=== PATIENT | female | born 1975 | race Caucasian/White ===

== ENCOUNTER → 2020-11-03 13:17 | Outpatient (BNVA) | payer OTHER, SELFPAY | PROVIDERS: PCP Internal Medicine; Referring Provider Internal Medicine; Visit Provider Student in an Organized Health Care Education/Training Program | DX: Z76.89 Persons encountering health services in other specified circumstances (principal) ==

== ENCOUNTER 2021-02-24 12:11 | Outpatient (REF) | payer OTHER, SELFPAY ==
[2021-02-24 12:54] LABS: MANUAL DIFF FLAG NO
[2021-02-24 13:04] LABS: Basophils Absolute Auto 0.1 X10*3/uL (0.0-0.2); Basophils Percent Auto 0.7 % (0-2); Eosinophils Absolute Auto 0.3 X10*3/uL (0.0-0.4); Eosinophils Percent Auto 3.1 % (0-4); Hematocrit 43.3 % (37-47); Hemoglobin 14.2 g/dl (12.0-16.0); Imm Gran Abs Auto 0.05 X10*3/uL (0.00-0.03); Imm Gran Pct Auto 0.6 % (0.0-0.4); Lymphocytes Absolute Auto 2.5 X10*3/uL (1.2-4.9); Lymphocytes Percent Auto 27.1 % (20-40); Mean Corpuscular HGB Conc 32.8 g/dl (31.0-35.0); Mean Corpuscular Hemoglobin 31.6 pg (27.0-33.0); Mean Corpuscular Volume 96.4 fL (80-98); Mean Platelet Volume 10.9 fL (9.4-12.3); Monocytes Absolute Auto 1.3 X10*3/uL (0.1-1.2); Monocytes Percent Auto 14.3 % (2-11); Neutrophils Absolute Auto 4.9 X10*3/uL (2.0-8.3); Neutrophils Percent Auto 54.2 % (45-73); Platelet Count 227 X10*3/uL (160-400); Red Blood Count 4.49 X10*6/uL (4.20-5.50); Red Cell Distribution Width 13.3 % (11.0-16.0); White Blood Count 9.1 X10*3/uL (4.8-10.8)
[2021-02-24 14:01] LABS: Glucose Urine UA NEG (NEG); Leukocyte Esterase Urine NEG (NEG); Nitrite Urine NEG (NEG); PH 5.5 (5.0-8.0); Urine Blood TRACE (NEG); Urine Ketones NEG (NEG); Urine Protein NEG (NEG-TRACE)
[2021-02-24 14:04] LABS: Appearance Urine CLEAR; Color Urine YELLOW
[2021-02-24 14:11] LABS: Erythrocyte Sedimentation Rate 6 MM/HR (0-20)
[2021-02-24 14:33] LABS: Squamous Epithelial Cell Urine 1+ /LPF; WBC Urine 0-2 /HPF (0-4)
[2021-02-24 18:27] LABS: Alanine Aminotransferase 30 U/L (0-31); Albumin Level 4.2 g/dL (3.5-5.0); Alkaline Phosphatase 60 U/L (39-117); Anion Gap 11 (12-20); Aspartate Amino Transferase 24 U/L (5-31); Bilirubin Total 0.7 mg/dL (0.0-1.0); Blood Urea Nitrogen 12 mg/dL (9-16); C Reactive Protein 0.16 mg/dL (< or = 0.50); Calcium 9.2 mg/dL (8.4-10.2); Carbon Dioxide 26 mmol/L (22-29); Chloride 105 mmol/L (96-108); Estimated Glomerular Filt Rate > 60; Glucose Random 92 mg/dL (60-115); Potassium 4.4 mmol/L (3.3-5.1); Sodium 138 mmol/L (135-145); Total Protein 7.2 g/dL (6.5-8.0)
[2021-02-25 12:11] LABS: Anti DNA DS Antibody 23 IU/mL
[2021-02-25 14:12] LABS: Complement C3 99 mg/dL (83-193)
== END 2021-02-24 12:12 | disposition home or self-care (01) ==
LOC: HO.LAB 12:11
PROVIDERS: PCP Internal Medicine; Visit Provider Student in an Organized Health Care Education/Training Program
DX: M32.9 Systemic lupus erythematosus, unspecified (principal)
CPT/HCPCS: 36415; 80053; 81001; 85025; 85652; 86140; 86160; 86225

== ENCOUNTER → 2021-03-04 14:56 | Outpatient (BNVA) | payer OTHER, SELFPAY | PROVIDERS: PCP Internal Medicine; Visit Provider Student in an Organized Health Care Education/Training Program ==

== ENCOUNTER 2021-06-01 16:59 | Outpatient (REF) | payer OTHER, SELFPAY ==
[2021-06-01 17:56] LABS: MANUAL DIFF FLAG NO
[2021-06-01 18:00] LABS: Basophils Absolute Auto 0.1 X10*3/uL (0.0-0.2); Basophils Percent Auto 0.9 % (0-2); Eosinophils Absolute Auto 0.3 X10*3/uL (0.0-0.4); Eosinophils Percent Auto 3.4 % (0-4); Hematocrit 39.7 % (37-47); Hemoglobin 13.2 g/dl (12.0-16.0); Imm Gran Abs Auto 0.03 X10*3/uL (0.00-0.03); Imm Gran Pct Auto 0.3 % (0.0-0.4); Lymphocytes Absolute Auto 2.9 X10*3/uL (1.2-4.9); Lymphocytes Percent Auto 33.8 % (20-40); Mean Corpuscular HGB Conc 33.2 g/dl (31.0-35.0); Mean Corpuscular Hemoglobin 31.6 pg (27.0-33.0); Mean Platelet Volume 10.8 fL (9.4-12.3); Monocytes Absolute Auto 1.3 X10*3/uL (0.1-1.2); Monocytes Percent Auto 15.3 % (2-11); Neutrophils Percent Auto 46.3 % (45-73); Platelet Count 216 X10*3/uL (160-400); Red Blood Count 4.18 X10*6/uL (4.20-5.50); Red Cell Distribution Width 13.2 % (11.0-16.0); White Blood Count 8.7 X10*3/uL (4.8-10.8)
[2021-06-01 18:19] LABS: Glucose Urine UA NEG (NEG); Leukocyte Esterase Urine NEG (NEG); Nitrite Urine NEG (NEG); Specific Gravity - Urine <= 1.005 (1.005-1.025); Urine Blood TRACE (NEG); Urine Ketones NEG (NEG); Urine Protein NEG (NEG-TRACE)
[2021-06-01 18:21] LABS: Appearance Urine CLEAR; Color Urine YELLOW
[2021-06-01 18:22] LABS: Alanine Aminotransferase 26 U/L (0-31); Albumin Level 4.2 g/dL (3.5-5.0); Alkaline Phosphatase 55 U/L (39-117); Anion Gap 13 (12-20); Aspartate Amino Transferase 25 U/L (5-31); Bilirubin Total 0.5 mg/dL (0.0-1.0); Blood Urea Nitrogen 12 mg/dL (9-16); C Reactive Protein 0.12 mg/dL (< or = 0.50); Calcium 9.4 mg/dL (8.4-10.2); Carbon Dioxide 25 mmol/L (22-29); Chloride 106 mmol/L (96-108); Estimated Glomerular Filt Rate > 60; Glucose Random 101 mg/dL (60-115); Potassium 4.1 mmol/L (3.3-5.1); Sodium 140 mmol/L (135-145); Total Protein 7.2 g/dL (6.5-8.0)
[2021-06-01 18:24] LABS: RBC Urine 0-2 /HPF (0); Squamous Epithelial Cell Urine 1+ /LPF; WBC Urine 0 /HPF (0-4)
[2021-06-01 18:25] LABS: Bacteria Urine 1+ /LPF
[2021-06-01 18:45] LABS: Erythrocyte Sedimentation Rate 5 MM/HR (0-20)
[2021-06-02 13:51] LABS: Complement C3 106 mg/dL (83-193)
[2021-06-04 10:02] LABS: Anti DNA DS Antibody 13 IU/mL
[2021-06-05 13:17] LABS: Vitamin D 25-OH, D2 <4 ng/mL; Vitamin D 25-OH, D3 23 ng/mL; Vitamin D 25-OH, Total 23 ng/mL (30-100)
== END 2021-06-01 17:00 | disposition home or self-care (01) ==
LOC: HO.LAB 16:59
PROVIDERS: PCP Internal Medicine; Visit Provider Student in an Organized Health Care Education/Training Program
DX: M32.9 Systemic lupus erythematosus, unspecified (principal)
CPT/HCPCS: 36415; 80053; 81001; 82306; 85025; 85652; 86140; 86160; 86225

== ENCOUNTER → 2021-06-11 15:05 | Outpatient (BNVA) | payer OTHER, SELFPAY | PROVIDERS: PCP Internal Medicine; Visit Provider Student in an Organized Health Care Education/Training Program ==

== ENCOUNTER 2021-11-04 16:54 | Outpatient (REF) | payer OTHER, SELFPAY ==
[2021-11-04 18:42] LABS: Creatinine Urine 110.75 mg/dL; Protein/Creatinine Ratio, Ur 0.11 (<0.2); Total Protein Urine Random 12 mg/dL (<12)
[2021-11-04 18:50] LABS: Blood Urea Nitrogen 18 mg/dL (9-16); Carbon Dioxide 25 mmol/L (22-29); Chloride 105 mmol/L (96-108); Estimated Glomerular Filt Rate > 60; Sodium 139 mmol/L (135-145)
== END 2021-11-04 16:55 | disposition home or self-care (01) ==
LOC: HO.LAB 16:54
PROVIDERS: PCP Internal Medicine; Visit Provider Internal Medicine Hypertension Specialist
DX: M32.10 Systemic lupus erythematosus, organ or system involvement unspecified (principal); R31.9 Hematuria, unspecified; R30.9 Painful micturition, unspecified
CPT/HCPCS: 36415; 82374; 82435; 82565; 84132; 84156; 84295; 84520

== ENCOUNTER 2022-08-04 06:17 | Outpatient (REF) | payer OTHER, SELFPAY ==
[2022-08-04 06:33] LABS: MANUAL DIFF FLAG NO
[2022-08-04 07:26] LABS: Basophils Absolute Auto 0.1 X10*3/uL (0.0-0.2); Basophils Percent Auto 0.8 % (0-2); Eosinophils Absolute Auto 0.4 X10*3/uL (0.0-0.4); Eosinophils Percent Auto 3.5 % (0-4); Hematocrit 39.6 % (37.0-47.0); Hemoglobin 13.4 g/dl (12.0-16.0); Imm Gran Abs Auto 0.04 X10*3/uL (0.00-0.03); Imm Gran Pct Auto 0.4 % (0.0-0.4); Lymphocytes Absolute Auto 3.4 X10*3/uL (1.2-4.9); Lymphocytes Percent Auto 32.7 % (20-40); Mean Corpuscular HGB Conc 33.8 g/dl (31.0-35.0); Mean Corpuscular Hemoglobin 31.6 pg (27.0-33.0); Mean Corpuscular Volume 93.4 fL (80.0-98.0); Mean Platelet Volume 11.1 fL (9.4-12.3); Monocytes Absolute Auto 1.4 X10*3/uL (0.1-1.2); Monocytes Percent Auto 13.6 % (2-11); Neutrophils Absolute Auto 5.1 x10*3/uL (2.0-8.3); Platelet Count 215 X10*3/uL (160-400); Red Blood Count 4.24 X10*6/uL (4.20-5.50); Red Cell Distribution Width 13.3 % (11.0-16.0); White Blood Count 10.3 X10*3/uL (4.8-10.8)
[2022-08-04 07:33] LABS: Appearance Urine Cloudy; Color Urine Yellow; Glucose Urine UA Negative (Negative); Leukocyte Esterase Urine Small (1+) (Negative); Nitrite Urine Negative (Negative); PH 5.5 (5.0-9.0); Specific Gravity - Urine 1.015 (1.005-1.025); UMIC TRIGGER UA YES; Urine Blood Small (1+) (Negative); Urine Ketones Negative (Negative); Urine Protein Negative (Neg-Trace)
[2022-08-04 07:50] LABS: Bacteria Urine 3+ (None Seen); Hyaline Casts Urine 0-2 /LPF (0-2); Squamous Epithelial Cell Urine >20 /HPF (0-2)
[2022-08-04 07:53] LABS: Alanine Aminotransferase 22 U/L (0-31); Albumin Level 4.2 g/dL (3.5-5.0); Alkaline Phosphatase 58 U/L (39-117); Anion Gap 14 (12-20); Aspartate Amino Transferase 19 U/L (5-31); Bilirubin Total 0.6 mg/dL (0.0-1.0); Blood Urea Nitrogen 15 mg/dL (9-16); Calcium 9.2 mg/dL (8.4-10.2); Carbon Dioxide 26 mmol/L (22-29); Chloride 102 mmol/L (96-108); Cholesterol 178 mg/dL; Estimated Glomerular Filt Rate > 60; Glucose Random 88 mg/dL (60-115); HDL Cholesterol 55 mg/dL; LDL Cholesterol Calculated 112 mg/dl; Magnesium 1.9 mg/dL (1.6-2.6); Potassium 4.4 mmol/L (3.3-5.1); Sodium 138 mmol/L (135-145); Total Protein 7.1 g/dL (6.5-8.0); Triglycerides 56 mg/dL
[2022-08-04 08:14] LABS: Erythrocyte Sedimentation Rate 6 MM/HR (0-20)
[2022-08-04 08:18] LABS: Free T4 (Free Thyroxine) 0.95 ng/dL (0.71-1.85); Vitamin D 25-OH Total 26.6 ng/mL (>30)
[2022-08-04 08:21] LABS: Folate 6.3 ng/mL (> or = 4.0); Vitamin B12 266 pg/mL (200-900)
[2022-08-10 12:18] LABS: Anti DNA DS Antibody 20 IU/mL
== END 2022-08-04 06:18 | disposition home or self-care (01) ==
LOC: HO.LAB 06:17
PROVIDERS: Absent Provider Nurse Practitioner Family; PCP Internal Medicine; Visit Provider Internal Medicine
DX: M32.9 Systemic lupus erythematosus, unspecified (principal); N05.2 Unspecified nephritic syndrome with diffuse membranous glomerulonephritis; E78.00 Pure hypercholesterolemia, unspecified
CPT/HCPCS: 36415; 80053; 80061; 81001; 82306; 82607; 82746; 83735; 84439; 84443; 85025; 85027; 85652; 86140; 86160; 86225

== ENCOUNTER 2023-04-20 09:52 | Day surgery (SDC) | payer OTHER, SELFPAY ==
[2023-04-14 16:40] VITALS: BMI 30.1
--- NOTE | 2023-04-19 08:54 | HO.ANESPROP2 ---
Documented by User: Rosario Rollins NP 04/19/23 08:54 HPI - Anesthesia Eval Consult details Narrative: 47yo F for Colonoscopy PMFSH Active Problems Active Problems: All Active Problems (Updated 03/16/22 @ 09:38 by Yuri Harvey PA-C) Upper respiratory infection (Acute) Pharyngitis (Acute) Generalized anxiety disorder (Acute) Tobacco abuse (Acute) Obesity (BMI 30.0-34.9) (Acute) Colon cancer screening (Acute) Annual physical exam (Acute) SLE (systemic lupus erythematosus related syndrome) (Acute) Membranous glomerulonephritis (Acute) Hypercholesterolemia (Acute) Neck muscle spasm (Acute) Past Medical History Medical History Hypercholesterolemia Membranous glomerulonephritis Rectus sheath hematoma Sigmoidoscopy performed SLE (systemic lupus erythematosus related syndrome) Vitamin D deficiency Family History Family History Father Myocardial infarction CVD (cardiovascular disease) Mother Diabetes CVA (cerebral vascular accident) Myocardial infarction Maternal Aunt Breast cancer Surgical History Surgical History History of section History of eye surgery Status post biopsy of kidney Social History Social History Housing: Apartment Alcohol intake: current Alcohol intake frequency: a few times a week Patient Tobacco Use Status: Current everyday Tobacco user Tobacco use type: Cigarette Cigarette Packs Per Day: 0.5 Cigarettes Per Day: 10 Smoked in Last 30 Days: Yes e-Cigarette/Vaping Use: Never Used Second Hand Smoke Exposure: Yes Use of substances other than those prescribed or required for medical reasons: No Are you DNR?: No Advance Directives: No Advance Directives Information Provided: Yes Current occupational status: employed Cognitive needs: No Hearing needs: No Vision needs: No Meds Allergies Allergy/AdvReac Type Severity Reaction Status Date / Time No Known Allergies Allergy Verified 04/20/23 10:12 Home Medications Medication Instructions Recorded Confirmed Last Taken Type aspirin 81 mg tablet,delayed 81 mg PO DAILY 09/02/20 04/20/23 04/19/23 History release (Adult Low Dose Aspirin) norethindrone (contraceptive) 0.35 mg PO 09/02/20 09/06/22 Unknown History mg tablet lisinopril 10 mg tablet 10 mg PO DAILY 09/29/20 04/20/23 Unknown History Exam Exam Date and Time: April 19, 2023 0854 Height,Weight and Vital Signs: Height 5 ft 5 in Weight 82.1 kg Assessment and Plan Assessment Anesthesia Assessment: Chart Reviewed Documented by User: Alicia Burdick MD 04/20/23 10:34 PMFSH Past Medical History Medical History Hypercholesterolemia Membranous glomerulonephritis Rectus sheath hematoma Sigmoidoscopy performed SLE (systemic lupus erythematosus related syndrome) Vitamin D deficiency Family History Family History Father Myocardial infarction CVD (cardiovascular disease) Mother Diabetes CVA (cerebral vascular accident) Myocardial infarction Maternal Aunt Breast cancer Surgical History Surgical History History of section History of eye surgery Status post biopsy of kidney History of Problems with Anesthesia: No Social History Social History Housing: Apartment Alcohol intake: current Alcohol intake frequency: a few times a week Patient Tobacco Use Status: Current everyday Tobacco user Tobacco use type: Cigarette Cigarette Packs Per Day: 0.5 Cigarettes Per Day: 10 Smoked in Last 30 Days: Yes e-Cigarette/Vaping Use: Never Used Second Hand Smoke Exposure: Yes Use of substances other than those prescribed or required for medical reasons: No Are you DNR?: No Advance Directives: No Advance Directives Information Provided: Yes Current occupational status: employed Cognitive needs: No Hearing needs: No Vision needs: No Meds Allergies Allergy/AdvReac Type Severity Reaction Status Date / Time No Known Allergies Allergy Verified 04/20/23 10:12 Home Medications Medication Instructions Recorded Confirmed Last Taken Type aspirin 81 mg tablet,delayed 81 mg PO DAILY 09/02/20 04/20/23 04/19/23 History release (Adult Low Dose Aspirin) norethindrone (contraceptive) 0.35 mg PO 09/02/20 09/06/22 Unknown History mg tablet lisinopril 10 mg tablet 10 mg PO DAILY 09/29/20 04/20/23 Unknown History Exam Airway Mallampati Class: II TM Dist: >3cm Neck ROM: Full Loose/Missing/Broken Teeth: No Heart: RRR Lungs: CTA Assessment and Plan Assessment Anesthesia Assessment: Anesthesia Plan Discussed Final Anesthetic Review History of Problems with Anesthesia: No NPO: Yes ASA Class: II Final Preanesthetic Review: Meds/Allgs Chart Reviewed, Consent Obtained/Reviewed and Anes Risks/Benef Reviewed Patient Risk: Low Procedure Risk: Low Anesthetic Plan Anesthetic Plan: MAC: Disposition: Standard PACU
[2023-04-20 10:07] VITALS: BMI 29.1
[2023-04-20 10:27] VITALS: BP 116/80; PULSE 81; RESP 16; TEMP 37.1; O2SAT 97
[2023-04-20 10:27] LABS: UPreg QC Valid YES; Urine Pregnancy NEGATIVE (NEGATIVE)
[2023-04-20] MEDS: Lactated Ringers 1,000 ML 100 ML IVCONT (10:45)
--- NOTE | 2023-04-20 10:49 | MHC.SHP ---
Pre-Procedural Eval Section A Date of Service: 04/20/23 Section B Chief Complaint: Screening Details of Present Illness: aunt with CRC Relevant Family History (Specify if Yes): Yes Relevant Social History: Tobacco Use Present Medications: see Short Stay Collaborative assessment Medical History: Significant History (Hypercholesterolemia Membranous glomerulonephritis Rectus sheath hematoma Sigmoidoscopy performed SLE (systemic lupus erythematosus related syndrome) Vitamin D deficiency) History of Previous Operations: Relevant previous surgery/procedure and date(s) (History of section History of eye surgery Status post biopsy of kidney) Allergies: Allergies Allergy/AdvReac Type Severity Reaction Status Date / Time No Known Allergies Allergy Verified 04/20/23 10:12 Review of Systems Sugical H&P ROS: Negative: Constitution, Cardiovascular, Respiratory, Neurological, Psychiatric, Hem-Onc, Allergic/Immunologic, Gastrointestinal, Genitourinary, Musculoskeletal, Integumentary, Endocrine and Eyes/Ears/Nose/Throat Exam Surgical H&P Exam: Normal: HEENT, Normal: Heart, Normal: Lungs, Normal: Extremities, Normal: Abdomen, Normal: Skin (malar rash) and Normal: Neurological Plan Diagnosis/Plan: Unchanged I have reviewed the history and physical and performed a pertinent physical examination on my patient. No changes have occurred unless specified. Time Spent With Patient Time: Total time managing care of this patient today ____ minutes.
--- NOTE | 2023-04-20 10:51 | W.PM.OPN ---
Operative Note Operative Note Date of Service: 04/20/23 Narrative: Operative Information Procedure Description: Colonoscopy Indication: screening Anesthesia: MAC COLONOSCOPY Instrument: Olympus variable stiffness pediatric scope 190L Colonoscopy Monitoring: Vital signs and clinical assessment, continuous EKG monitoring, Pulse oximetry, Carbon Dioxide monitoring and blood pressure monitoring were done throughout the procedure. Colon withdrawal time was 12 minutes. Procedure: The patient was placed in the left lateral decubitis position and pre-procedure medications were administered. After a digital rectal examination of the ano-rectum, the video colonoscope was inserted into the rectum and advanced through the colon to the cecum/TI. The colonoscope was slowly withdrawn in a retrograde panoramic fashion and the colon mucosa was carefully examined including a retroflexed view of the rectum. Findings and interventions are described below. Procedure Difficulty: moderate, pressure applied to LLQ Findings: Terminal Ileum-normal Cecum:normal Ascending Colon: normal Transverse Colon -normal Descending Colon:normal Sigmoid Colon: normal Rectum: Retroflexion with small internal hemorrhoids, grade I Anorectum - normal Colon preparation: [place] Bowel Preparation Scale Right colon; 3 Transverse colon: 3 Left colon; 3 (0 = Unprepared colon segment with mucosa not seen due to solid stool that cannot be cleared. 1 = Portion of mucosa of the colon segment seen, but other areas of the colon segment not well seen due to staining, residual stool and/or opaque liquid. 2 = Minor amount of residual staining, small fragments of stool and/or opaque liquid, but mucosa of colon segment seen well. 3 = Entire mucosa of colon segment seen well with no residual staining, small fragments of stool or opaque liquid) Impression and Post Procedure Diagnosis: internal hemorrhoids Plan: High fiber diet leaflet Avoid straining at stool, epsom salts and sitz bath, anusol supps or cream Repeat Colonoscopy in 10 years or earlier if clinically indicated Above findings were reviewed with the patient and relevant handouts were provided if indicated.
[2023-04-20 11:26] VITALS: BP 103/38; PULSE 99; RESP 16; TEMP 36.4; O2SAT 99
[2023-04-20 11:41] VITALS: BP 112/64; PULSE 75; RESP 14; TEMP 36.6; O2SAT 99
== END 2023-04-20 12:05 | disposition home or self-care (01) ==
PROVIDERS: Nurse Practitioner; PCP Internal Medicine; Visit Provider Internal Medicine Gastroenterology
PROC: 0DJD8ZZ Inspection of Lower Intestinal Tract, Via Natural or Artificial Opening Endoscopic (ICD-10-PCS; CPT 45378; principal; 2023-04-20 11:40)
DX: Z12.11 Encounter for screening for malignant neoplasm of colon (principal); K64.0 First degree hemorrhoids; M79.81 Nontraumatic hematoma of soft tissue; E78.00 Pure hypercholesterolemia, unspecified; N05.2 Unspecified nephritic syndrome with diffuse membranous glomerulonephritis; M32.8 Other forms of systemic lupus erythematosus; E55.9 Vitamin D deficiency, unspecified; Z79.82 Long term (current) use of aspirin; Z79.899 Other long term (current) drug therapy; F17.210 Nicotine dependence, cigarettes, uncomplicated
CPT/HCPCS: 45378; 81025

== ENCOUNTER → 2023-05-05 08:26 | Outpatient (BNVA) | payer OTHER, SELFPAY | PROVIDERS: PCP Internal Medicine; Visit Provider Nurse Practitioner Family ==

== ENCOUNTER 2023-10-19 16:20 | Outpatient (AMB) | payer OTHER, SELFPAY ==
[2023-10-19 16:21] VITALS: BP 116/88; PULSE 110; O2SAT 95; BMI 29.0
--- NOTE | 2023-10-19 16:21 | MHC.PC.OV ---
Vital Signs 10/19/23 16:21 10/19/23 16:42 Height 5 ft 5 in Weight 174 lb 8 oz BMI 29.0 BP 116/88 Blood Pressure Location Rt brachial Position Sitting Pulse 110 H 95 Pulse Source Pulse Oximeter Auscultation Pulse Oximetry (%) 95 Oxygen Delivery Method Room Air Intake Visit Reasons: Annual Exam Director Of Community Education Required: No Accompanied by: Self / Same As Patient Allergies No Known Allergies Allergy (Verified 10/19/23 16:22) Medication List - Last Reconciled 10/19/23 by Willi Kaplan MD aspirin (Adult Low Dose Aspirin) 81 mg PO DAILY hydroxychloroquine 200 mg PO DAILY lisinopril 20 mg PO DAILY norethindrone (contraceptive) mg PO Tobacco use date assessed: 03/06/23 Dental Screening Dental Screen Date: 10/19/23 Did you have a dental visit in the last 12 months?: Yes Did you have a dental problem in the last 6 months where you did not have access to dental care?: No Was dental information given to patient?: Patient has dentist HPI Annual Exam HPI Details 47-year-old overweight female smoker with a history of SLE with membranous glomerulonephritis, hypercholesterolemia generalized anxiety disorder coming in for physical exam. Last seen in February 2023. Colonoscopy done April 2023 recently advise screening in 5 years due to family history of colorectal cancer. Patient also follows up with Rheumatology for the SLE on hydroxychloroquine 200 mg once a day . numbness ofR hand - starting - and was told by rheuma concern on plaquenil - also mentioned C[facility] Medical History (Updated 10/19/23 @ 17:05 by Willi Kaplan MD) Obesity (BMI 30.0-34.9) Colon cancer screening Sigmoidoscopy performed Rectus sheath hematoma Vitamin D deficiency SLE (systemic lupus erythematosus related syndrome) Membranous glomerulonephritis Hypercholesterolemia Surgical History Hx of colonoscopy History of eye surgery Status post biopsy of kidney History of section Family History (Updated 10/19/23 @ 16:49 by Willi Kaplan MD) Father Myocardial infarction CVD (cardiovascular disease) Mother Diabetes CVA (cerebral vascular accident) Myocardial infarction Maternal Aunt Breast cancer Colon cancer Social History (Updated 10/19/23 @ 16:50 by Willi Kaplan MD) Housing: Apartment Alcohol intake: current Alcohol intake frequency: a few times a week Comment: 3x a week 3 drinks Patient Tobacco Use Status: Current everyday Tobacco user Tobacco use type: Cigarette Cigarette Packs Per Day: 0.5 Cigarettes Per Day: 10 Years Smoked: 5 a day e-Cigarette/Vaping Use: Never Used Second Hand Smoke Exposure: Yes Current occupational status: employed Cognitive needs: No Hearing needs: No Vision needs: No Questionnaire Thrive Questionnaire Date Thrive assessed: 03/06/23 CAROLINA-7 AMB Questionnaire CAROLINA-7 Date CAROLINA - 7 assessed: 03/06/23 Source: Developed by Drs. Kurtis Rodrigez, Louise Hutchinson, Dariusz Larsen and colleagues, with an educational arian from [employer]. Review of Systems Const Denies poor appetite and Denies weakness Eyes Denies no additional complaints ENT Reports Normal hearing present, Denies dizziness, Denies nasal congestion, Denies tinnitus and Denies sore throat Card Denies chest pain, Denies syncope, Denies rapid heart rate and Denies dyspnea Resp Denies cough and Denies dyspnea GI Denies change in stool character, Reports constipation, Denies diarrhea, Denies nausea and Denies vomiting Denies urinary frequency, Denies difficulty voiding and Denies dysuria Neuro Reports Normal hearing present, Denies confusion, Denies dizziness, Denies syncope and Denies weakness Psych Denies confusion Physical exam (Primary Care) Vital Signs: Last Vital Signs Pulse 110 H 10/19/23 16:21 BP 116/88 10/19/23 16:21 Pulse Ox 95 10/19/23 16:21 Oxygen Delivery Method Room Air 10/19/23 16:21 BMI result Body Mass Index 29.0 Tobacco/Smoking Status: Tobacco use Status Tobacco use date assessed 03/06/23 10/19/23 16:27 Patient Tobacco Use Status Current everyday Tobacco 10/19/23 16:27 Tobacco use type Cigarette 10/19/23 16:27 e-Cigarette/Vaping Use Never Used 10/19/23 16:27 Thrive Assessment: Date of Thrive Assessment Date Thrive assessed 03/06/23 10/19/23 16:27 Const General: No confusion Orientation/consciousness: No confusion HENMT Other: eye with strabismus Head: Yes normocephalic Ears: external ears normal and TM's normal bilaterally Face and sinus: Yes normal facial exam Mouth: moist mucous membranes Throat: Yes tonsils normal Eyes Conjunctivae: conjunctivae normal Pupils: Equal, round and reactive pupils present and Pupil accommodation reflex normal Direct Ophthalmoscopy: normal light reflex Neck Neck: No lymphadenopathy Thyroid: Thyroid normal Chest Chest palpation & inspection: normal inspection of the chest Resp Effort & Inspection: normal respiratory effort and no audible wheezes Auscultation: clear to auscultation bilaterally, no crackles, no wheezes and lung sounds not diminished Cardio Rate: regular rate Rhythm: regular rhythm Peripheral pulses: radial pulses present and dorsalis pedis present GI Palpation (GI): no masses Auscultation: normal bowel sounds and normoactive bowel sounds Rectal Exam - Female: deferred Skin General skin exam: no rashes or lesions noted Rashes: no rashes Neuro General: No confusion Cranial nerves: Yes Equal, round and reactive pupils present and Yes Normal hearing present Cognition (Neuro): normal cognition Gait exam (Neuro): Normal gait present Motor exam (neuro): 5/5 motor strength present throughout Deep tendon reflexes (DTR's): Right brachioradialis reflex intensity grade: 2+, Left brachioradialis reflex intensity grade: 2+, Right patellar reflex intensity grade: 2+ and Left patellar reflex intensity grade: 2+ Extrem General: No edema Office Procedures Flu Questionnaire Does the patient have a severe egg allergy?: No Does the patient have severe life threatening allergies?: No Does the patient have a fever or illness today?: No Has the patient ever had Guillain-[place] Syndrome?: No Has the patient ever had any past reaction to a flu shot?: No Immunizations flu vacc [id number] 6mos up(PF) 60 mcg(15 mcgx4)/0.5 mL IM syringe Performing Provider: Willi Kaplan MD Performing Location: [facility] Administered by: LESLIE Jimenes on 10/19/23 16:36 Dose Route Admin Location Dispensed Lot Number Expiration Date NDC [employer] 0.5 mL IM Right Deltoid 0.5 mL [id number] 05/19/24 12194-210-43 [employer] VIS Given Date VIS Provided VIS Publication Date 10/19/23 Single Vaccine 21 Eligibility Eligibility Date Funding Source Not [facility] Eligible 10/19/23 Private Assessment and Plan Assessment & Plan (1) Annual physical exam: Code(s): Z00.00 - Encounter for general adult medical examination without abnormal findings (2) SLE (systemic lupus erythematosus related syndrome): Code(s): M32.9 - Systemic lupus erythematosus, unspecified Plan: Continue to follow-up with Rheumatology patient on hydroxychloroquine (3) Membranous glomerulonephritis: Comment: Code(s): N05.2 - Unspecified nephritic syndrome with diffuse membranous glomerulonephritis Plan: Continue with [place] inhibitors and continue to follow-up with Nephrology (4) Hypercholesterolemia: Code(s): E78.00 - Pure hypercholesterolemia, unspecified Plan: Avoid fried foods, chicken skin, eggs, butter margarine, pastries and meat. Be it pork or beef they have a lot of cholesterol last blood work is within normal range. Advised to get blood work again (5) Generalized anxiety disorder: Code(s): F41.1 - Generalized anxiety disorder Plan: Stable (6) Tobacco abuse: Code(s): Z72.0 - Tobacco use Plan: Patient is strongly advised to stop smoking (7) Numbness of finger: Comment: Right hand Code(s): R20.0 - Anesthesia of skin Plan: will monitor for now Orders: Orders Influenza [id number] Immunization Today Z23 - Encounter for immunization Coding Level of Care Code Est Pt Prev Care 40-64y(29918) Diagnoses Annual physical exam Z00.00 SLE (systemic lupus erythematosus related syndrome) M32.9 Membranous glomerulonephritis N05.2 Hypercholesterolemia E78.00 Generalized anxiety disorder F41.1 Tobacco abuse Z72.0 Numbness of finger R20.0
[2023-10-19 16:42] VITALS: PULSE 95
== END 2023-10-19 17:09 | disposition home or self-care (01) ==
LOC: HO.HMGH 16:21
PROVIDERS: Visit Provider Internal Medicine
DX: Z00.00 Encounter for general adult medical examination without abnormal findings (principal); M32.9 Systemic lupus erythematosus, unspecified; N05.2 Unspecified nephritic syndrome with diffuse membranous glomerulonephritis; Z23 Encounter for immunization; E78.00 Pure hypercholesterolemia, unspecified; F41.1 Generalized anxiety disorder; Z72.0 Tobacco use; R20.0 Anesthesia of skin
CPT/HCPCS: 90471; 90686; 99396

== ENCOUNTER 2023-11-10 10:42 | Outpatient (AMB) | payer OTHER, SELFPAY ==
--- NOTE | 2023-11-10 10:42 | MHC.PC.OV ---
Intake Visit Reasons: persistent cough Allergies No Known Allergies Allergy (Verified 11/10/23 10:42) Tobacco use date assessed: 11/10/23 HPI persistent cough HPI Details 47-year-old overweight female smoker with a history of SLE membranous glomerular nephritis hypercholesterolemia generalized anxiety disorder coming in for an acute problem last seen in 10/19/2023. cough - -3 week , had fevers states after flu shot- , , productive of clear sputum, PFSH Medical History (Updated 10/19/23 @ 17:05 by Willi Kaplan MD) Obesity (BMI 30.0-34.9) Colon cancer screening Sigmoidoscopy performed Rectus sheath hematoma Vitamin D deficiency SLE (systemic lupus erythematosus related syndrome) Membranous glomerulonephritis Hypercholesterolemia Surgical History Hx of colonoscopy History of eye surgery Status post biopsy of kidney History of section Family History (Updated 10/19/23 @ 16:49 by Willi Kaplan MD) Father Myocardial infarction CVD (cardiovascular disease) Mother Diabetes CVA (cerebral vascular accident) Myocardial infarction Maternal Aunt Breast cancer Colon cancer Social History (Updated 10/19/23 @ 16:50 by Willi Kaplan MD) Housing: Apartment Alcohol intake: current Alcohol intake frequency: a few times a week Comment: 3x a week 3 drinks Patient Tobacco Use Status: Current everyday Tobacco user Tobacco use type: Cigarette Cigarette Packs Per Day: 0.5 Cigarettes Per Day: 10 Years Smoked: 5 a day e-Cigarette/Vaping Use: Never Used Second Hand Smoke Exposure: Yes Current occupational status: employed Cognitive needs: No Hearing needs: No Vision needs: No Questionnaire Thrive Questionnaire Date Thrive assessed: 03/06/23 AUDIT C Alcohol Use Questionnaire (AUDIT-C) 1. How often do you have a drink containing alcohol?: Monthly or less 2. How many drinks containing alcohol do you have on a typical day when you are drinking?: 1 or 2 3. How often do you have six or more drinks on one occasion?: Never Total Score: 1 CAROLINA-7 AMB Questionnaire CAROLINA-7 Date CAROLINA - 7 assessed: 03/06/23 Source: Developed by Drs. Kurtis Rodrigez, Louise Hutchinson, Dariusz Larsen and colleagues, with an educational arian from [employer]. Physical exam (Primary Care) Tobacco/Smoking Status: Tobacco use Status Tobacco use date assessed 11/10/23 11/10/23 10:43 Patient Tobacco Use Status Current everyday Tobacco 11/10/23 10:43 Tobacco use type Cigarette 11/10/23 10:43 e-Cigarette/Vaping Use Never Used 11/10/23 10:43 Thrive Assessment: Date of Thrive Assessment Date Thrive assessed 03/06/23 11/10/23 10:43 Const General: alert; No acute distress Eyes Conjunctivae: conjunctivae normal Resp Auscultation: clear to auscultation bilaterally Cardio Rate: regular rate Rhythm: regular rhythm GI Inspection: Yes normal to inspection Extrem General: Yes normal to inspection and No edema Telehealth Telehealth Location of provider rendering services: practice address Location of patient: address on file Patient Identification confirmed using: Name, : Yes Telehealth method: video (iphone) Patient verbally consented to treatment: Yes Patient verbally consented to billing insurance company: Yes Patient informed of any privacy concerns related to visit: Yes Minutes spent on Phone/Video with Pt.: 15 Assessment and Plan Assessment & Plan (1) Tobacco abuse: Code(s): Z72.0 - Tobacco use Plan: Patient is strongly advised to stop smoking!!! (2) SLE (systemic lupus erythematosus related syndrome): Code(s): M32.9 - Systemic lupus erythematosus, unspecified (3) Upper respiratory infection: Code(s): J06.9 - Acute upper respiratory infection, unspecified Qualifiers: URI type: acute pharyngitis Pharyngitis/tonsillitis etiology: other specified organisms Qualified Code(s): J02.8 - Acute pharyngitis due to other specified organisms Plan: Resolving. Discussed that for productive cough may use the Mucinex but for dry cough can use the antitussives Delsym 10 cc twice a day. Coding Level of Care Code Tele Est Pt Level 3 (77743) Diagnoses Tobacco abuse Z72.0 SLE (systemic lupus erythematosus related syndrome) M32.9 Acute pharyngitis due to other specified organisms J02.8 URI type: acute pharyngitis Pharyngitis/tonsillitis etiology: other specified organisms
== END 2023-11-10 12:13 | disposition home or self-care (01) ==
LOC: HO.HMGH 10:42
PROVIDERS: PCP Internal Medicine; Visit Provider Internal Medicine
DX: J02.8 Acute pharyngitis due to other specified organisms (principal); F17.210 Nicotine dependence, cigarettes, uncomplicated; M32.9 Systemic lupus erythematosus, unspecified
CPT/HCPCS: 99213

== ENCOUNTER 2024-10-21 16:32 | Outpatient (AMB) | payer OTHER, SELFPAY ==
[2024-10-21 16:28] VITALS: BP 112/76; PULSE 99; O2SAT 94; BMI 28.1
--- NOTE | 2024-10-21 16:28 | HO.NEPHOV_ITS ---
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 h/o SLE Here for annual follow up No new issues ON Lisinopril and tolerating well [facility] Medical History (Updated 10/21/24 @ 16:43 by Jerry Renae MD) Obesity (BMI 30.0-34.9) Colon cancer screening Sigmoidoscopy performed Rectus sheath hematoma Vitamin D deficiency SLE (systemic lupus erythematosus related syndrome) Membranous glomerulonephritis Hypercholesterolemia Surgical History Hx of colonoscopy History of eye surgery Status post biopsy of kidney History of section Family History Father Myocardial infarction CVD (cardiovascular disease) Mother Diabetes CVA (cerebral vascular accident) Myocardial infarction Maternal Aunt Breast cancer Colon cancer Social History Housing: Apartment Alcohol intake: current Alcohol intake frequency: a few times a week Comment: 3x a week 3 drinks Patient Tobacco Use Status: Current everyday Tobacco user Tobacco use type: Cigarette Cigarette Packs Per Day: 0.5 Cigarettes Per Day: 10 Years Smoked: 5 a day e-Cigarette/Vaping Use: Never Used Second Hand Smoke Exposure: Yes Current occupational status: employed Cognitive needs: No Hearing needs: No Vision needs: No Physical Exam Vital Signs: Last Vital Signs Pulse 99 10/21/24 16:28 BP 112/76 10/21/24 16:28 Pulse Ox 94 10/21/24 16:28 Oxygen Delivery Method Room Air 10/21/24 16:28 BMI result Body Mass Index 28.1 Comfortable Neck supple no JVD. Lungs entry equal no rales. Heart S1-S2 heard no gallop or rub. Abdomen soft nontender. Neuro alert awake oriented. No asterixis. Extremities no edema. Results Reviewed Nephrology Results: Hgb 13.4 g/dl (12.0-16.0) 08/04/22 WBC 10.3 X10*3/uL (4.8-10.8) 08/04/22 Plt Count 215 X10*3/uL (160-400) 08/04/22 Sodium 138 mmol/L (135-145) 08/04/22 Potassium 4.4 mmol/L (3.3-5.1) 08/04/22 Chloride 102 mmol/L (96-108) 08/04/22 Carbon Dioxide 26 mmol/L (22-29) 08/04/22 BUN 15 mg/dL (9-16) 08/04/22 Creatinine 0.73 mg/dL (0.5-1.4) 08/04/22 Calcium 9.2 mg/dL (8.4-10.2) 08/04/22 Urine Protein Negative mg/dL (Neg-Trace) 08/04/22 Assessment & Plan Assessment & Plan (1) SLE (systemic lupus erythematosus related syndrome): Code(s): M32.9 - Systemic lupus erythematosus, unspecified Category: Medical (2) Membranous glomerulonephritis: Code(s): N05.2 - Unspecified nephritic syndrome with diffuse membranous glomerulonephritis Category: Medical Plan Middle aged woman with Membranous Nehropathy in remission Renal function has been stable Monitor urine protein excretion Continue ACEi Maintain BP < 130/80 Avoid nephrotoxins Discussed weight loss and smoking cessation Orders: Orders Creatinine Urine 1 Year N05.2 - Unspecified nephritic syndrome with diffuse membranous glomerulonephritis Total Protein Urine Random 1 Year N05.2 - Unspecified nephritic syndrome with diffuse membranous glomerulonephritis Basic Metabolic Panel 1 Year N05.2 - Unspecified nephritic syndrome with diffuse membranous glomerulonephritis UA and rflx microscopic 1 Year N05.2 - Unspecified nephritic syndrome with diffuse membranous glomerulonephritis Coding Level of Care Code Est Pt Level 4 (07262) Diagnoses SLE (systemic lupus erythematosus related syndrome) M32.9 Membranous glomerulonephritis N05.2
== END 2024-10-21 16:45 | disposition home or self-care (01) ==
PROVIDERS: PCP Internal Medicine; Visit Provider Internal Medicine Hypertension Specialist
DX: M32.14 Glomerular disease in systemic lupus erythematosus (principal)
CPT/HCPCS: 99214

== ENCOUNTER 2024-10-24 16:26 | Outpatient (AMB) | payer OTHER, SELFPAY ==
--- NOTE | 2024-10-24 16:32 | MHC.PC.OV ---
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 Accompanied by: Self / Same As Patient Allergies No Known Allergies Allergy (Verified 10/24/24 16:39) Medication List - Last Reconciled 10/24/24 by Willi Kaplan MD aspirin (Adult Low Dose Aspirin) 81 mg PO DAILY hydroxychloroquine 200 mg PO DAILY lisinopril 20 mg PO DAILY norethindrone (contraceptive) mg PO DAILY Tobacco use date assessed: 10/24/24 Dental Screening Dental Screen Date: 10/24/24 Did you have a dental visit in the last 12 months?: Yes Did you have a dental problem in the last 6 months where you did not have access to dental care?: No Was dental information given to patient?: Patient has dentist HPI pe HPI Details The patient is a 48-year-old female presenting for a physical examination and management of chronic conditions. The patient has a history of systemic lupus erythematosus (SLE) with membranous glomerulonephritis, which is currently in remission. She has been under nephrology follow-up and continues on an KENDALL inhibitor to maintain blood pressure under control. She is advised to avoid NSAIDs to prevent renal injury. The patient also reports chronic knee pain suggestive of osteoarthritis, noting intermittent swelling likely exacerbated by footwear, which improved upon changing shoes. Additionally, the patient is an active smoker, with attempts to reduce smoking from 10 to 5 cigarettes per day. She recalls a previous successful smoking cessation strategy through gradual reduction. No new surgeries or diagnoses since the last visit were reported. - Mammogram performed in June 2023. - Pap smear conducted in November 2022. - Colonoscopy up to date, with the next one due in 2027 due to family history. - Smoking cessation discussed as a critical preventive measure. - Blood pressure is well maintained with the current therapy. - Discussion on safe use of pain relief medication prioritizing Tylenol over NSAIDs. - No recent vaccinations due to past adverse reaction to flu shots. 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 - Exercise: Regular participation in golf during spring, summer, and fall; walks regularly. - Substance use: Smokes 5-10 cigarettes per day, alcohol consumption three times a week with approximately three cocktails. - Family: Lives in an area facilitating access to distant specialists. - Nutrition: Intends to increase water intake; manages dietary salt due to previous swelling episodes. - General: Denies dizziness, passing out, or nausea. - Musculoskeletal: Reports pain and swelling in the knees, suspected osteoarthritis. - Cardiovascular: Denies chest pain or shortness of breath. - Gastrointestinal: Reports rare heartburn, regular bowel movements. - Genitourinary: No issues reported, wakes once at night to urinate. - Ears, Eyes, Nose, Throat: Denies new hearing loss; mild issues attributed to work noise. 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 - Respiratory: Denies frequent cough or new dyspnea. [facility] Medical History (Updated 10/24/24 @ 17:06 by Willi Kaplan MD) Obesity (BMI 30.0-34.9) Colon cancer screening Sigmoidoscopy performed Rectus sheath hematoma Vitamin D deficiency SLE (systemic lupus erythematosus related syndrome) Membranous glomerulonephritis Hypercholesterolemia Surgical History Hx of colonoscopy History of eye surgery Status post biopsy of kidney History of section Family History (Updated 10/24/24 @ 17:13 by Willi Kaplan MD) Father Myocardial infarction CVD (cardiovascular disease) Mother Diabetes CVA (cerebral vascular accident) Myocardial infarction Maternal Aunt Colon cancer Paternal Aunt Breast cancer Social History Housing: Apartment Alcohol intake: current Alcohol intake frequency: a few times a week Comment: 3x a week 3 drinks Patient Tobacco Use Status: Current everyday Tobacco user Tobacco use type: Cigarette Cigarette Packs Per Day: 0.5 Cigarettes Per Day: 10 Years Smoked: 5 a day e-Cigarette/Vaping Use: Never Used Second Hand Smoke Exposure: Yes service: No Current occupational status: employed Current occupational exposures/hazards: No Cognitive needs: No Hearing needs: No Vision needs: No Questionnaire PHQ-9 Over the last 2 weeks, how often have you been bothered by any of the following problems? 1. Little interest or pleasure in doing things: not at all 2. Feeling down, depressed, or hopeless: not at all 3. Trouble falling or staying asleep, or sleeping too much: not at all 4. Feeling tired or having little energy: not at all 5. Poor appetite or overeating: not at all 6. Feeling bad about yourself - or that you are a failure or have let yourself or your family down: not at all 7. Trouble concentrating on things, such as reading the newspaper or watching television: not at all 8. Moving or speaking so slowly that other people could have noticed. Or the opposite - being so fidgety or restless that you have been moving around a lot more than usual: not at all 9. Thoughts that you would be better off or of hurting yourself in some way: not at all Total score: 0 Depression Screening Interpretation: Negative Depression Screening Done: Yes Source: Developed by Drs. Kurtis Rodrigez, Louise Hutchinson, Dariusz Larsen and colleagues, with an educational arian from [employer]. Thrive Questionnaire Date Thrive assessed: 10/24/24 I am a: Patient What is your living situation today?: I have a steady place to live Within the past 12 months, did the food you bought not last and you didn't have the money to get more?: Never true Within the past 12 months, did you worry whether your food would run out before you got money to buy more?: Never true Do you have trouble paying for medicines?: No Do you have trouble getting transportation to medical appointments?: No Do you have trouble paying your heating and electricity bill?: No Do you have trouble taking care of your child, family member or friend?: No Do you have trouble with day-to-day activities such as bathing, preparing meals, shopping, managing finances, etc.?: No Are you currently unemployed and looking for a job?: No Are you interested in more education?: No Please select the resources that you would like help with: None Currently or been in a relationship where the following occur: No concerns reported THRIVE Score: 0 AUDIT C Alcohol Use Questionnaire (AUDIT-C) 1. How often do you have a drink containing alcohol?: Monthly or less 2. How many drinks containing alcohol do you have on a typical day when you are drinking?: 1 or 2 3. How often do you have six or more drinks on one occasion?: Never Total Score: 1 CAROLINA-7 AMB Questionnaire CAROLINA-7 Date CAROLINA - 7 assessed: 10/24/24 Feeling nervous, anxious, or on edge: 0 = Not at all Not being able to stop or control worryin = Not at all Worrying too much about different things: 0 = Not at all Trouble relaxin = Not at all Being so restless that it is hard to sit still: 0 = Not at all Becoming easily annoyed or irritable: 0 = Not at all Feeling afraid as if something awful might happen: 0 = Not at all Total CAROLINA-7 score (0-4 normal; 5-9 mild; 10-14 moderate; 15-21 severe): 0 Source: Developed by Drs. Kurtis Rodrigez, Louise Hutchinson, Dariusz Larsen and colleagues, with an educational arian from [employer]. Review of Systems Const Denies poor appetite and Denies weakness Eyes Denies no additional complaints ENT Reports Normal hearing present, Denies dizziness, Denies nasal congestion, Denies tinnitus and Denies sore throat Card Denies chest pain, Denies syncope, Denies rapid heart rate and Denies dyspnea Resp Denies cough and Denies dyspnea GI Denies change in stool character, Reports constipation, Denies diarrhea, Denies nausea and Denies vomiting Denies urinary frequency, Denies difficulty voiding and Denies dysuria Neuro Reports Normal hearing present, Denies confusion, Denies dizziness, Denies syncope and Denies weakness Psych Denies confusion Physical exam (Primary Care) Vital Signs: Last Vital Signs Pulse 85 10/24/24 16:35 BP 112/78 10/24/24 16:35 Pulse Ox 96 10/24/24 16:35 Oxygen Delivery Method Room Air 10/24/24 16:35 BMI result Body Mass Index 28.3 Tobacco/Smoking Status: Tobacco use Status Tobacco use date assessed 10/24/24 10/24/24 16:41 Patient Tobacco Use Status Current everyday Tobacco 10/24/24 16:41 Tobacco use type Cigarette 10/24/24 16:41 e-Cigarette/Vaping Use Never Used 10/24/24 16:41 PHQ-9: PHQ-9 Score PHQ-9: Total score 0 10/24/24 16:41 Depression Screening Interpretation: Negative Thrive Assessment: Date of Thrive Assessment Date Thrive assessed 10/24/24 10/24/24 16:41 Currently or been in a relationship where the following occur: No concerns reported Const General: No confusion Orientation/consciousness: No confusion HENMT Head: Yes normocephalic Ears: external ears normal and TM's normal bilaterally Face and sinus: Yes normal facial exam Mouth: moist mucous membranes Throat: Yes tonsils normal Eyes Conjunctivae: conjunctivae normal Pupils: Equal, round and reactive pupils present and Pupil accommodation reflex normal Direct Ophthalmoscopy: normal light reflex Neck Neck: No lymphadenopathy Thyroid: Thyroid normal Chest Chest palpation & inspection: normal inspection of the chest Resp Effort & Inspection: normal respiratory effort and no audible wheezes Auscultation: clear to auscultation bilaterally, no crackles, no wheezes and lung sounds not diminished Cardio Rate: regular rate Rhythm: regular rhythm Peripheral pulses: radial pulses present and dorsalis pedis present GI Palpation (GI): no masses Auscultation: normal bowel sounds and normoactive bowel sounds Rectal Exam - Female: deferred Skin General skin exam: no rashes or lesions noted Rashes: no rashes Neuro General: No confusion Cranial nerves: Yes Equal, round and reactive pupils present and Yes Normal hearing present Cognition (Neuro): normal cognition Gait exam (Neuro): Normal gait present Motor exam (neuro): 5/5 motor strength present throughout Deep tendon reflexes (DTR's): Right brachioradialis reflex intensity grade: 2+, Left brachioradialis reflex intensity grade: 2+, Right patellar reflex intensity grade: 2+ and Left patellar reflex intensity grade: 2+ Extrem General: No edema Office Procedures Flu Questionnaire Does the patient have a severe egg allergy?: No Immunizations Fluarix Triv [id number] (PF) 45 mcg (15 mcg x 3)/0.5 mL IM syringe Performing Provider: Willi Kaplan MD [facility] Documented (not given) by: ONUR Gomez on 10/24/24 16:44 Reason Not Given: Patient Refused Coding Level of Care Code Est Pt Prev Care 40-64y(17894) Diagnoses Annual physical exam Z00.00 Tobacco abuse Z72.0 SLE (systemic lupus erythematosus related syndrome) M32.9 Membranous glomerulonephritis N05.2 Hypercholesterolemia E78.00 Generalized anxiety disorder F41.1 Breast cancer screening by mammogram Z12. Assessment & Plan Assessment & Plan (1) Annual physical exam: Code(s): Z00.00 - Encounter for general adult medical examination without abnormal findings Category: Medical Plan: Patient is advised to eat healthy, keep well hydrated, keep active and have adequate sleep. (2) Tobacco abuse: Code(s): Z72.0 - Tobacco use Category: Medical Plan: Patient is strongly advised to stop smoking! (3) SLE (systemic lupus erythematosus related syndrome): Code(s): M32.9 - Systemic lupus erythematosus, unspecified Category: Medical Plan: Stable patient is on hydroxychloroquine and continue to follow-up with Rheumatology (4) Membranous glomerulonephritis: Code(s): N05.2 - Unspecified nephritic syndrome with diffuse membranous glomerulonephritis Category: Medical Plan: Patient follows up with Nephrology and is in remission. On lisinopril (5) Hypercholesterolemia: Code(s): E78.00 - Pure hypercholesterolemia, unspecified Category: Medical Plan: Avoid fried foods, chicken skin, eggs, butter margarine, pastries and meat. Be it pork or beef they have a lot of cholesterol (6) Generalized anxiety disorder: Code(s): F41.1 - Generalized anxiety disorder Category: Medical Plan: Stable (7) Breast cancer screening by mammogram: Code(s): Z12.31 - Encounter for screening mammogram for malignant neoplasm of breast Category: Medical Plan: Patietn states had mammo but no results received Plan - Systemic Lupus Erythematosus with Membranous Glomerulonephritis: Continue current management with monitoring of renal function and blood pressure. Avoid NSAID use. - Essential Hypertension: Continue KENDALL inhibitor, monitor blood pressure regularly. - Tobacco Use Disorder: Encouraged continuation and acceleration of smoking cessation efforts. - Osteoarthritis: Suggested exploration of footwear modifications; introduced Voltaren gel as an alternative to NSAIDs for knee pain management. 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 We discussed the importance of maintaining controlled blood pressure to support kidney health, discouraging NSAID use due to its potential nephrotoxic effects, and continuing the KENDALL inhibitor therapy. We explored smoking cessation strategies, referencing the patient's past success with gradual reduction, and highlighted the importance considering her renal health risks. Ibuprofen gel (Voltaren) was recommended for osteoarthritis management as it is safer for renal function than oral NSAIDs. The patient was reminded of her upcoming healthcare maintenance requirements for lupus monitoring and advised on managing her activity levels during non-golf seasons. - Continue lisinopril and current medications as prescribed. - Use Voltaren gel for knee discomfort, avoiding oral NSAIDs. - Gradually reduce smoking, aiming for complete cessation. - Monitor blood pressure and dietary salt intake. - Increase daily water intake to target hydration. - Follow up with routine eye exams and renal function checks. - Consider different indoor physical activities during winter months. - Contact the clinic for any concerning symptoms or if further assistance with medication or cessation support is needed. - Stay aware of infection risks and maintain flu precautions despite not receiving a flu shot this year. Orders: Orders Influenza [id number] Immunization Today Z23 - Encounter for immunization Complete Blood Count Auto Diff Today M32.9 - Systemic lupus erythematosus, unspecified Comprehensive Met. Panel Today M32.9 - Systemic lupus erythematosus, unspecified Microalbumin, Random (w Creat) Today E11.65 - Type 2 diabetes mellitus with hyperglycemia, M32.9 - Systemic lupus erythematosus, unspecified Free T4 (Free Thyroxine) Today M32.9 - Systemic lupus erythematosus, unspecified Thyroid Stimulating Hormone Today M32.9 - Systemic lupus erythematosus, unspecified Vitamin B12 and Folate Today M32.9 - Systemic lupus erythematosus, unspecified Vitamin D 25-OH Total Today M32.9 - Systemic lupus erythematosus, unspecified Erythrocyte Sedimentation Rate Today M32.9 - Systemic lupus erythematosus, unspecified Creatinine Urine Today E11.65 - Type 2 diabetes mellitus with hyperglycemia, M32.9 - Systemic lupus erythematosus, unspecified Lipid Panel Today E78.00 - Pure hypercholesterolemia, unspecified, M32.9 - Systemic lupus erythematosus, unspecified UA w Microscopic Today M32.9 - Systemic lupus erythematosus, unspecified C Reactive Protein Today M32.9 - Systemic lupus erythematosus, unspecified
[2024-10-24 16:35] VITALS: BP 112/78; PULSE 85; O2SAT 96; BMI 28.3
== END 2024-10-24 17:30 | disposition home or self-care (01) ==
PROVIDERS: PCP Internal Medicine; Visit Provider Internal Medicine
DX: Z00.00 Encounter for general adult medical examination without abnormal findings (principal); Z72.0 Tobacco use; M32.9 Systemic lupus erythematosus, unspecified; N05.2 Unspecified nephritic syndrome with diffuse membranous glomerulonephritis; E78.00 Pure hypercholesterolemia, unspecified; F41.1 Generalized anxiety disorder; Z12.31 Encounter for screening mammogram for malignant neoplasm of breast; Z23 Encounter for immunization

== ENCOUNTER → 2024-10-24 16:26 | Outpatient (BNVA) | payer OTHER, SELFPAY | PROVIDERS: PCP Internal Medicine; Visit Provider Internal Medicine | DX: Z00.00 Encounter for general adult medical examination without abnormal findings (principal); M32.9 Systemic lupus erythematosus, unspecified; N05.2 Unspecified nephritic syndrome with diffuse membranous glomerulonephritis; E78.00 Pure hypercholesterolemia, unspecified; F41.1 Generalized anxiety disorder; I10 Essential (primary) hypertension; M19.90 Unspecified osteoarthritis, unspecified site; E66.3 Overweight; Z68.28 Body mass index [BMI] 28.0-28.9, adult; Z79.899 Other long term (current) drug therapy; Z72.0 Tobacco use; Z28.21 Immunization not carried out because of patient refusal | CPT/HCPCS: 90471; 96127 ==

== ENCOUNTER 2025-10-09 11:33 | Outpatient (AMB) | payer OTHER, SELFPAY ==
--- NOTE | 2025-10-09 11:38 | HO.NEPHOV_ITS ---
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 Accompanied by: Self / Same As Patient Allergies No Known Allergies Allergy (Verified 10/09/25 11:39) PFS Medical History (Updated 10/24/24 @ 17:06 by Willi Kaplan MD) Obesity (BMI 30.0-34.9) Colon cancer screening Sigmoidoscopy performed Rectus sheath hematoma Vitamin D deficiency SLE (systemic lupus erythematosus related syndrome) Membranous glomerulonephritis Hypercholesterolemia Surgical History Hx of colonoscopy History of eye surgery Status post biopsy of kidney History of section Family History Father Myocardial infarction CVD (cardiovascular disease) Mother Diabetes CVA (cerebral vascular accident) Myocardial infarction Maternal Aunt Colon cancer Paternal Aunt Breast cancer Social History Housing: Apartment Alcohol intake: current Alcohol intake frequency: a few times a week Comment: 3x a week 3 drinks Patient Tobacco Use Status: Current everyday Tobacco user Tobacco use type: Cigarette Cigarette Packs Per Day: 0.5 Cigarettes Per Day: 10 Years Smoked: 5 a day e-Cigarette/Vaping Use: Never Used Second Hand Smoke Exposure: Yes service: No Current occupational status: employed Current occupational exposures/hazards: No Cognitive needs: No Hearing needs: No Vision needs: No Coding
[2025-10-09 11:39] VITALS: BP 110/70; PULSE 96; O2SAT 99; BMI 28.3
--- NOTE | 2025-10-09 11:42 | HO.NEPHOV_ITS ---
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 h/o SLE Here for annual follow up No new issues ON Lisinopril and tolerating well [facility] Medical History (Updated 10/24/24 @ 17:06 by Willi Kaplan MD) Obesity (BMI 30.0-34.9) Colon cancer screening Sigmoidoscopy performed Rectus sheath hematoma Vitamin D deficiency SLE (systemic lupus erythematosus related syndrome) Membranous glomerulonephritis Hypercholesterolemia Surgical History Hx of colonoscopy History of eye surgery Status post biopsy of kidney History of section Family History Father Myocardial infarction CVD (cardiovascular disease) Mother Diabetes CVA (cerebral vascular accident) Myocardial infarction Maternal Aunt Colon cancer Paternal Aunt Breast cancer Social History Housing: Apartment Alcohol intake: current Alcohol intake frequency: a few times a week Comment: 3x a week 3 drinks Patient Tobacco Use Status: Current everyday Tobacco user Tobacco use type: Cigarette Cigarette Packs Per Day: 0.5 Cigarettes Per Day: 10 Years Smoked: 5 a day e-Cigarette/Vaping Use: Never Used Second Hand Smoke Exposure: Yes service: No Current occupational status: employed Current occupational exposures/hazards: No Cognitive needs: No Hearing needs: No Vision needs: No Physical Exam Vital Signs: Last Vital Signs Pulse 96 10/09/25 11:39 BP 110/70 10/09/25 11:39 Pulse Ox 99 10/09/25 11:39 Oxygen Delivery Method Room Air 10/09/25 11:39 BMI result Body Mass Index 28.3 Comfortable Neck supple no JVD. Lungs entry equal no rales. Heart S1-S2 heard no gallop or rub. Abdomen soft nontender. Neuro alert awake oriented. No asterixis. Extremities no edema. Assessment & Plan Assessment & Plan (1) SLE (systemic lupus erythematosus related syndrome): Code(s): M32.9 - Systemic lupus erythematosus, unspecified Category: Medical (2) Membranous glomerulonephritis: Code(s): N05.2 - Unspecified nephritic syndrome with diffuse membranous glomerulonephritis Category: Medical Plan Middle aged woman with Membranous Nehropathy in remission Renal function has been stable Monitor urine protein excretion Continue ACEi Maintain BP < 130/80 Avoid nephrotoxins Discussed weight loss and smoking cessation Orders: Orders Basic Metabolic Panel 1 Year N05.2 - Unspecified nephritic syndrome with diffuse membranous glomerulonephritis Creatinine Urine 1 Year N05.2 - Unspecified nephritic syndrome with diffuse membranous glomerulonephritis Total Protein Urine Random 1 Year N05.2 - Unspecified nephritic syndrome with diffuse membranous glomerulonephritis UA and rflx microscopic 1 Year N05.2 - Unspecified nephritic syndrome with diffuse membranous glomerulonephritis Coding Level of Care Code Est Pt Level 4 (49576) Diagnoses SLE (systemic lupus erythematosus related syndrome) M32.9 Membranous glomerulonephritis N05.2
--- OUTSIDE RECORDS SUMMARY | 2025-10-09 17:53 | XMS_ITS | Clinical Summary ---
Author Organization [facility] Address [address] [place] [address] Phone Care Team Providers Care Quality Assurance Assessor Name Role Phone Willi Kaplan MD Primary Care Provider [phone] Allergies No known active allergies Medications aspirin (ST LILY) 81 MG EC tablet Comments: Patient Notes: TAKE 1 TABLET BY MOUTH EVERY DAY Duration: 30 Active hydroxychloroqu ine (PLAQUENIL) 200 MG tablet Take 200 mg by mouth 1 (one) time each day 08/24/2021 Active Incassia 0.35 MG tablet Take 1 tablet by mouth 1 (one) time each day 08/03/2021 Active lisinopril 20 MG tablet TAKE 1 TABLET BY MOUTH EVERY DAY 90 tablet 2 01/15/2023 Active Active Problems Problem Noted Date Diagnosed Date Hematoma of rectus sheath 12/08/2022 Blood in urine 11/04/2021 Proteinuria 11/04/2021 Systemic lupus erythematosus 11/04/2021 Family History Medical History Relation Comments Kidney disease Child reflux Heart disease Father Diabetes Mother Relation Status Comments Child Father Mother Alive Social History Tobacco Use Types Packs/Day Years Used Date Smoking Tobacco: Former Smokeless Tobacco: Never Tobacco Cessation:Counseling Given: Not Answered Alcohol Use Standard Drinks/Week Comments Yes 0 (1 standard drink = 0.6 oz pure alcohol) Alcoholic Drinks/day: Occasional social drink Comments Unknown Sex and Gender Information Value Date Recorded Sex Assigned at Not on file Legal Sex Female 5:02 PM EST Gender Identity Not on file Sexual Orientation Not on file Last Filed Vital Signs Vital Sign Reading Time Taken Comments Blood Pressure 120/82 07/20/2023 1:41 PM EDT Pulse 107 07/20/2023 1:41 PM EDT Temperature - - Respiratory Rate - - Oxygen Saturation - - Inhaled Oxygen Concentration - - Weight 80.4 kg (177 lb 3.2 oz) 07/20/2023 1:41 P M EDT Height 165.1 cm (5' 5 ) 11/04/2019 12:01 PM EST Body Mass Index 29.49 11/04/2019 12:01 PM EST Plan of Treatment Health Maintenance Due Date Last Done Comments Breast Cancer Screening 1975 Hepatitis B Vaccine (1 of 3 - 19+ 3-dose series) 11/17 Pneumococcal Vaccine: 50+ Years (1 of 2 - PCV) 993 Colorectal Cancer Screening: Annual FOBT 2023 Colorectal Cancer Screening: Colonoscopy 2023 Colorectal Cancer Screening: Sigmoidoscopy 2023 Influenza Vaccine (#1) 2025 Insurance Member Subscriber Plan / Payer (Ef fective 2023-Present) Name:Laurel Strickland Relation to Subscriber:Self Name:Laurel Strickland Payer ID:Not on file Type:Not on file Address: [address] [id number] [facility] Care Teams Quality Assurance Assessor Relationship Specialty Start Date End Date Willi Kaplan MD [facility] [address] [place] PCP - General Internal Medicine 07/20/23
--- OUTSIDE RECORDS SUMMARY | 2025-10-09 17:53 | XMS_ITS | Patient Health Record ---
Author Organization [facility] Address [address] [place] [address] Care Team Providers Care Learning Disabled Teacher Name Role Phone Willi Kaplan Primary Care Provider Anum Townsend Unavailable [phone] Reason For Referral No Information Medications Medication SIG (Take, Route, Frequency, Duration) Notes Start Date End Date Status Hydroxychloroquine Sulfate Active Norethindrone Active Advil Active Nightsplint . . . AFO - L1930; Duration: . Active Lisinopril 10 MG 1 tablet Orally Once a day Active Aspirin 81 MG 1 tablet Orally Once a day Active Plaquenil 200 MG 1 tablet with food o r milk Orally Once a day Active Social History Tobacco Use: Social History Observation Description Date Details (start date - stop date) Former Smoker NA - NA Tobacco Use/Smoking Question Answer Notes Are you a: former smoker Additional Findings: Tobacco User Heavy cigarett e smoker (20-39 cigs/day) Additional Findings: Tobacco Non-User Current no n-smoker Alcohol Screen Question Answer Notes Did you have a drink containing alcohol in the p ast year? Yes Points 0 Interpretation Negative Tobacco use other than smoking: Question Answer Notes Are you an other tobacco user? No Plan Of Treatment Pending Test Test Name Order Date X ray : Foot, left 3V 10/23/2018 [id number] TENDON SHEATH/LIGAMENT 0 11/21/2018 Insurance Providers Payer Name Payer Address Payer Phone Subscriber Number Group Number Insured Name Patient Relationship to Insured Coverage Start Date Coverage End Date [employer] ([facility] [address] [place], [place] [id number] Laurel Rucker Self - patient is the insured Medical (General) History Medical History History ICD Code Lupus Chicken pox Surgical History Surgery Date(Month/Year) section 03/2007
== END 2025-10-09 11:48 | disposition home or self-care (01) ==
LOC: HO.HKA 11:33
PROVIDERS: PCP Internal Medicine; Visit Provider Internal Medicine Hypertension Specialist
DX: M32.9 Systemic lupus erythematosus, unspecified (principal); N05.2 Unspecified nephritic syndrome with diffuse membranous glomerulonephritis
CPT/HCPCS: 99214

== ENCOUNTER 2025-11-06 16:24 | Outpatient (AMB) | payer OTHER, SELFPAY ==
[2025-11-06 16:26] VITALS: BP 112/68; PULSE 91; RESP 18; O2SAT 99; BMI 28.2
--- NOTE | 2025-11-06 16:26 | A.OFFPC_ITS ---
Vital Signs 11/06/25 16:26 Height 5 ft 5 in Weight 169 lb 4 oz BMI 28.2 BP 112/68 Blood Pressure Location Lt brachial Position Sitting Respiration 18 Pulse 91 Pulse Source Pulse Oximeter Temp Source Temporal Artery Scan Pulse Oximetry (%) 99 Oxygen Delivery Method Room Air Intake Visit Reasons: PHYSICAL - see comments Medical Billing And Coding Instructor Required: No Accompanied by: Self / Same As Patient Allergies No Known Allergies Allergy (Verified 11/06/25 16:27) Medication List - Last Reconciled 11/06/25 by Willi Kaplan MD aspirin (Adult Low Dose Aspirin) 81 mg PO DAILY hydroxychloroquine 200 mg PO DAILY lisinopril 20 mg PO DAILY norethindrone (contraceptive) mg PO DAILY Tobacco use date assessed: 11/06/25 Dental Screening Dental Screen Date: 11/06/25 Did you have a dental visit in the last 12 months?: Yes Did you have a dental problem in the last 6 months where you did not have access to dental care?: No Was dental information given to patient?: Patient has dentist HPI HPI Comments History of Present Illness Details History of Present Illness The patient is a 49-year-old female presenting for a physical exam. Her past medical history is significant for membranous glomerulonephritis, systemic lupus erythematosus (SLE), hypercholesterolemia, generalized anxiety disorder, and tobacco use. Her last visit was in October of the previous year. The patient follows with nephrology and rheumatology for her conditions. Her membranous glomerulonephritis and SLE are in remission with stable renal function, though her anti-DNA antibodies remain elevated. She is maintained on an KENDALL inhibitor and hydroxychloroquine. She undergoes annual eye exams due to her hydroxychloroquine use. Blood work from July showed a normal blood count with hemoglobin of 13.8 g/dL and hematocrit of 40.7%, normal platelets, and a normal C-reactive protein. The labs were notable for macrocytosis with an MCV of 100 fL and a low vitamin D level of 19.3 ng/mL. Previous labs from 2021 showed a low vitamin B12 level, and her thyroid function is normal. In terms of family history, her father and mother had a history of stroke. She has an aunt with a history of colon cancer and another aunt with a history of breast cancer. She denies any other family history of cancer. The patient reports working on smoking cessation. She drinks alcohol a few times per week, with approximately three drinks per session. She was physically active with golf over the summer and fall but currently lacks a winter exercise routine. For health screenings, her mammogram is due, and she had a colonoscopy in March 2023. Her MEMBERSHIP ADVISOR plans to continue her on control pills for one more year for menopause management. Health Maintenance A standing order for fasting blood work, which includes a cholesterol check, has been placed for the patient to complete in the upcoming year. The patient has scheduled her mammogram for Tita Velazquez. She will continue with annual eye exams due to her hydroxychloroquine use. The recommended interval for her colonoscopy, likely every 5 years due to family history, was discussed. The shingles vaccine was recommended, with discussion about it being a two-part shot available at the pharmacy. 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 - Tobacco Use: She is a current smoker a nd reports that she is working on quitting. - Alcohol Use: The patient reports drink ing alcohol a few times a week, consuming about three drinks per session. - Diet: She reports eating healthy and d oing a lot of cooking at home. - Exercise: The patient was active with golfing over the summer and fall but does not have a regular exercise routine for the winter. Results - Labs from July: - CBC: Normal blood count with Hemoglobi n 13.8 g/dL and Hematocrit 40.7%. - Red Blood Cell Indices: MCV 100 fL, in dicating macrocytosis. - Platelets: Normal. - Vitamin D: 19.3 ng/mL (low). - Anti-DNA antibody: Elevated. - Chemistry: Creatinine 0.76 mg/dL. - Inflammatory Markers: C-reactive prote in normal. - Labs from 2021: - Vitamin B12: Low. - Thyroid function tests: Normal. [facility] Medical History Obesity (BMI 30.0-34.9) Colon cancer screening Sigmoidoscopy performed Rectus sheath hematoma Vitamin D deficiency SLE (systemic lupus erythematosus related syndrome) Membranous glomerulonephritis Hypercholesterolemia Surgical History Hx of colonoscopy History of eye surgery Status post biopsy of kidney History of section Family History Father Myocardial infarction CVD (cardiovascular disease) Mother Diabetes CVA (cerebral vascular accident) Myocardial infarction Maternal Aunt Colon cancer Paternal Aunt Breast cancer Social History Housing: Apartment Alcohol intake: current Alcohol intake frequency: a few times a week Comment: 3x a week 3 drinks Patient Tobacco Use Status: Current everyday Tobacco user Tobacco use type: Cigarette Cigarette Packs Per Day: 0.5 Cigarettes Per Day: 10 Years Smoked: 5 a day e-Cigarette/Vaping Use: Never Used Second Hand Smoke Exposure: Yes service: No Current occupational status: employed Current occupational exposures/hazards: No Cognitive needs: No Hearing needs: No Vision needs: No Questionnaire PHQ-9 Over the last 2 weeks, how often have you been bothered by any of the following problems? 1. Little interest or pleasure in doing things: not at all 2. Feeling down, depressed, or hopeless: not at all 3. Trouble falling or staying asleep, or sleeping too much: not at all 4. Feeling tired or having little energy: several days 5. Poor appetite or overeating: not at all 6. Feeling bad about yourself - or that you are a failure or have let yourself or your family down: not at all 7. Trouble concentrating on things, such as reading the newspaper or watching television: not at all 8. Moving or speaking so slowly that other people could have noticed. Or the opposite - being so fidgety or restless that you have been moving around a lot more than usual: not at all 9. Thoughts that you would be better off or of hurting yourself in some w ay: not at all Total score: 1 Source: Developed by Drs. Kurtis Rodrigez, Louise Hutchinson, Dariusz Larsen and colleagues, with an educational arian from [employer]. Thrive Questionnaire Date Thrive assessed: 11/06/25 I am a: Patient What is your living situation today?: I have a steady place to live Within the past 12 months, did the food you bought not last and you didn't have the money to get more?: Never true Within the past 12 months, did you worry whether your food would run out before you got money to buy more?: Never true Do you have trouble paying for medicines?: No Do you have trouble getting transportation to medical appointments?: No Do you have trouble paying your heating and electricity bill?: No Do you have trouble taking care of your child, family member or friend?: No Do you have trouble with day-to-day activities such as bathing, preparing meals, shopping, managing finances, etc.?: No Are you currently unemployed and looking for a job?: No Are you interested in more education?: I choose not to answer this question Please select the resources that you would like help with: None Currently or been in a relationship where the following occur: No concerns reported THRIVE Score: 0 AUDIT C Alcohol Use Questionnaire (AUDIT-C) 1. How often do you have a drink containing alcohol?: 2-3 times a week 2. How many drinks containing alcohol do you have on a typical day when you are drinking?: 3 or 4 3. How often do you have six or more drinks on one occasion?: Less than monthly Total Score: 5 CAROLINA-7 AMB Questionnaire CAROLINA-7 Date CAROLINA - 7 assessed: 11/06/25 Feeling nervous, anxious, or on edge: 0 = Not at all Not being able to stop or control worryin = Several days Worrying too much about different things: 1 = Several days Trouble relaxin = Not at all Being so restless that it is hard to sit still: 0 = Not at all Becoming easily annoyed or irritable: 0 = Not at all Feeling afraid as if something awful might happen: 0 = Not at all Total CAROLINA-7 score (0-4 normal; 5-9 mild; 10-14 moderate; 15-21 severe): 2 Source: Developed by Drs. Kurtis Rodrigez, Louise Hutchinson, aDriusz Larsen and colleagues, with an educational arian from [employer]. Review of Systems Narrative Review of Systems - Constitutional: Denies syncope, dizziness, and fever. Reports feeling pretty good. - HEENT: Reports recent onset of xerostomia (dry mouth), especially upon waking, which she associates with menopause. Reports subjective hearing difficulty but denies tinnitus. Denies dysphagia or coughing while eating. - Cardiovascular: Denies chest pain. - Respiratory: Denies dyspnea on exertion or paroxysmal nocturnal dyspnea. - Gastrointestinal: Reports one recent episode of acid reflux. Denies nausea and vomiting. Reports normal bowel movements without constipation or diarrhea. - Genitourinary: Reports nocturia once per night. Denies other urinary symptoms. - Musculoskeletal: Denies leg swelling. - Psychiatric: Reports a new feeling of anxiety which she attributes to menopause. Const Denies poor appetite and Denies weakness Eyes Denies no additional complaints ENT Reports Normal hearing present, Denies dizziness, Denies nasal congestion, Denies tinnitus and Denies sore throat Card Denies chest pain, Denies syncope, Denies rapid heart rate and Denies dyspnea Resp Denies cough and Denies dyspnea GI Denies change in stool character, Reports constipation, Denies diarrhea, Denies nausea and Denies vomiting Denies urinary frequency, Denies difficulty voiding and Denies dysuria Neuro Reports Normal hearing present, Denies confusion, Denies dizziness, Denies syncope and Denies weakness Psych Denies confusion Physical exam (Primary Care) Vital Signs: Last Vital Signs Pulse 91 11/06/25 16:26 Resp 18 11/06/25 16:26 BP 112/68 11/06/25 16:26 Pulse Ox 99 11/06/25 16:26 Oxygen Delivery Method Room Air 11/06/25 16:26 BMI result Body Mass Index 28.2 Tobacco/Smoking Status: Tobacco use Status Tobacco use date assessed 11/06/25 11/06/25 16:28 Patient Tobacco Use Status Current everyday Tobacco 11/06/25 16:28 Tobacco use type Cigarette 11/06/25 16:28 e-Cigarette/Vaping Use Never Used 11/06/25 16:28 PHQ-9: PHQ-9 Score PHQ-9: Total score 1 11/06/25 16:58 Thrive Assessment: Date of Thrive Assessment Date Thrive assessed 11/06/25 11/06/25 16:28 Currently or been in a relationship where the following occur: No concerns reported Narrative Physical Exam General: Cooperative, healthy appearing, comfortable, no acute distress and well developed Orientation: Patient oriented x3 Limitations: No limitations Head: Normal to inspection Ears: Hearing grossly normal bilaterally, but patient reports saying what a lot Nose: Normal external nose present Face and sinus: Normal facial exam Eyes: Appearance normal, both eyes and all related structures Neck: Normal visual inspection and Yes full ROM Respiratory: Normal respiratory effort and able to speak in complete sentences. Clear to auscultation bilaterally Cardiovascular: Regular rate and rhythm. Normal S1 and S2 GI: Normal to inspection. Soft to palpation and nontender Skin: No rashes or lesions noted Neuro: Patient oriented x3 Extremities: Normal to inspection Const General: No confusion Orientation/consciousness: No confusion HENMT Head: Yes normocephalic Ears: external ears normal and TM's normal bilaterally Face and sinus: Yes normal facial exam Mouth: moist mucous membranes Throat: Yes tonsils normal Eyes Conjunctivae: conjunctivae normal Pupils: Equal, round and reactive pupils present and Pupil accommodation reflex normal Direct Ophthalmoscopy: normal light reflex Neck Neck: No lymphadenopathy Thyroid: Thyroid normal Chest Chest palpation & inspection: normal inspection of the chest Resp Effort & Inspection: normal respiratory effort and no audible wheezes Auscultation: clear to auscultation bilaterally, no crackles, no wheezes and lung sounds not diminished Cardio Rate: regular rate Rhythm: regular rhythm Peripheral pulses: radial pulses present and dorsalis pedis present GI Palpation (GI): no masses Auscultation: normal bowel sounds and normoactive bowel sounds Rectal Exam - Female: deferred Skin General skin exam: no rashes or lesions noted Rashes: no rashes Neuro General: No confusion Cranial nerves: Yes Equal, round and reactive pupils present and Yes Normal hearing present Cognition (Neuro): normal cognition Gait exam (Neuro): Normal gait present Motor exam (neuro): 5/5 motor strength present throughout Deep tendon reflexes (DTR's): Right brachioradialis reflex intensity grade: 2+, Left brachioradialis reflex intensity grade: 2+, Right patellar reflex intensity grade: 2+ and Left patellar reflex intensity grade: 2+ Extrem General: No edema Coding Level of Care Code Est Pt Prev Care 40-64y(31104) Diagnoses Annual physical exam Z00.00 SLE (systemic lupus erythematosus related syndrome) M32.9 Membranous glomerulonephritis N05.2 Tobacco abuse Z72.0 Overweight (BMI 25.0-29.9) E66.3 Assessment & Plan Assessment & Plan (1) Annual physical exam: Code(s): Z00.00 - Encounter for general adult medical examination without abnormal findings Category: Medical Plan: Patient is advised to eat healthy, keep well hydrated, keep active and have adequate sleep. (2) SLE (systemic lupus erythematosus related syndrome): Code(s): M32.9 - Systemic lupus erythematosus, unspecified Category: Medical Plan: Patient continues to follow-up with Rheumatology (3) Membranous glomerulonephritis: Code(s): N05.2 - Unspecified nephritic syndrome with diffuse membranous glomerulonephritis Category: Medical Plan: Patient being followed up by Nephrology and stable (4) Tobacco abuse: Code(s): Z72.0 - Tobacco use Category: Medical Plan: Patient is strongly advised to stop smoking! (5) Overweight (BMI 25.0-29.9): Code(s): E66.3 - Overweight Category: Medical Plan: Diet and exercise Plan Plan Patient was informed and verbally consented to the use of an ambient scribe for clinic note documentation during this visit. 1. Membranous Glomerulonephritis And Systemic Lupus Erythematosus The patient's membranous glomerulonephritis and SLE are in remission with stable renal function. She will continue to follow up with her nephrology and rheumatol ogy specialists. She is to continue her current medications, including lisinopril for renal protection and hydroxychloroquine. 2. Tobacco Use Disorder The patient was strongly advised to stop smoking. The increased health risks and stress associated with smoking were discussed, and her efforts to quit were acknowledged. 3. Hypercholesterolemia An order for fasting labs, including a cholesterol panel, has been placed for the patient to complete. 4. Menopause Management The patient will continue taking control pills for one more year as per her MEMBERSHIP ADVISOR's recommendation for management of menopausal symptoms. Her self- reported symptoms of dry mouth and increased anxiety were noted in the context of menopause. 5. At-Risk Alcohol Use The patient was counseled on new recommendations regarding alcohol consumption, which advise no more than one drink per day for women, and ideally zero for individuals with blood pressure concerns. The potential correlation between alcohol use and memory problems was also discussed. Discussion Notes I reviewed the patient's recent lab work from July and confirmed that her kidney function is stable and her inflammatory markers are normal, which is reassuring. We discussed that her kidney and lupus conditions are in remission, and she will continue to be followed by her souvenir and novelty maker and accounting/finance tutor. Her blood pressure was very good today, and I emphasized the importance of keeping it controlled to protect her kidneys. I strongly advised the patient to quit smoking, acknowledging that the past year has been emotionally difficult. I also counseled her on reducing her alcohol intake, explaining the latest guidelines recommend no more than one drink per day for women and noted a potential link between alcohol and memory. Regarding health screenings, I confirmed she has an appointment for her mammogram and we discussed that her colonoscopy interval should likely be every five years due to her family history. I explained that a lab order for fasting blood work, to check cholesterol among other things, is ready for her. I recommended she consider the shingles vaccine (Shingrix), explaining it is a two-dose series and can prevent a very painful illness. I informed her of potential side effects, such as arm pain and feeling unwell for a day or two after the second shot. We discussed the importance of maintaining an active lifestyle year-round and finding an alternative exercise for the winter months. 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 Patient Instructions - Continue to take your current medications as prescribed, including lisinopril and hydroxychloroquine. - Keep your follow-up appointments with your kidney doctor (souvenir and novelty maker) and accounting/finance tutor. - Quitting smoking is strongly recommended for your overall health. - Try to limit alcohol to no more than one drink per day. - Please go for your scheduled mammogram on . - An order for blood work is ready at the lab. You will need to fast (nothing to eat or drink except water) before this test. This will check your cholesterol. - Be sure to get your eye exam every year, as this is important while you are taking hydroxychloroquine. - Consider getting the shingles vaccine (Shingrix). It is given in two shots and is available at the pharmacy. It can prevent a painful shingles rash. - Find an exercise routine you can do during the winter months to stay active all year long. - Continue to eat a healthy diet with plenty of vegetables, fish, and chicken. Orders: Orders Free T4 (Free Thyroxine) Today E78.00 - Pure hypercholesterolemia, unspecified Thyroid Stimulating Hormone Today E78.00 - Pure hypercholesterolemia, unspecified Vitamin B12 and Folate Today E78.00 - Pure hypercholesterolemia, unspecified Complete Blood Count Auto Diff Today E78.00 - Pure hypercholesterolemia, unspecified Comprehensive Met. Panel Today E78.00 - Pure hypercholesterolemia, unspecified Lipid Panel Today E78.00 - Pure hypercholesterolemia, unspecified Vitamin D 25-OH Total Today E78.00 - Pure hypercholesterolemia, unspecified Hemoglobin A1c Today E78.00 - Pure hypercholesterolemia, unspecified UA CC w/rflx Micro + Cult Today E78.00 - Pure hypercholesterolemia, unspecified, R30.0 - Dysuria
--- OUTSIDE RECORDS SUMMARY | 2025-11-06 19:41 | XMS_ITS | Clinical Summary ---
Author Organization [facility] Address [address] [place] [address] Phone Care Team Providers Care Sheet Sewer Name Role Phone Willi Kaplan MD Primary Care Provider [phone] Allergies No known active allergies Medications aspirin [...] ID:Not on file Type:Not on file Address: [address] [id number] [facility] Care Teams Sheet Sewer Relationship Specialty Start Date End Date Willi Kaplan MD [facility] [address] [place] PCP - General Internal Medicine 07/20/23
--- OUTSIDE RECORDS SUMMARY | 2025-11-06 19:41 | XMS_ITS | Patient Health Record ---
Author Organization [facility] Address [address] [place] [address] Care Team Providers Care Freight Caller Name Role Phone Willi Kaplan Primary Care Provider Anum Townsend Unavailable [phone] Reason For Referral No Information Medications Medication [...] X ray : Foot, left 3V 10/23/2018 [id number] TENDON SHEATH/LIGAMENT 0 11/21/2018 Insurance Providers Payer Name Payer Address Payer Phone Subscriber Number Group Number Insured Name Patient Relationship to Insured Coverage Start Date Coverage End Date [employer] ([facility]) [address] [place], [place] [id number] Laurel Rucker Self - patient is the insured Medical (General) History Medical History History ICD Code Lupus Chicken pox Surgical History Surgery Date(Month/Year) section 03/2007
== END 2025-11-06 17:26 | disposition home or self-care (01) ==
LOC: HO.HMCH 16:25
PROVIDERS: PCP Internal Medicine; Visit Provider Internal Medicine
DX: Z00.00 Encounter for general adult medical examination without abnormal findings (principal); M32.9 Systemic lupus erythematosus, unspecified; N05.2 Unspecified nephritic syndrome with diffuse membranous glomerulonephritis; Z72.0 Tobacco use; E66.3 Overweight